=== PATIENT | female | born 1965 | race Two or more races ===

== ENCOUNTER 2021-11-05 09:21 | Outpatient (CLI) | payer OTHER | END 2021-11-05 10:57 | disposition home or self-care (01) | LOC: SONOGRAMA 09:21 | PROVIDERS: ATTEND Pathology Anatomic Pathology & Clinical Pathology | DX: E04.2 Nontoxic multinodular goiter (principal) ==

== ENCOUNTER 2022-04-30 08:45 | Inpatient (IN) | payer OTHER ==
[~2022-04-30] VITALS: Ht 167.6 cm; Wt 57.6 kg
[2022-04-30] MEDS ORDERED: NORVASC2.5 M1 PO (10:13)
[2022-04-30] MEDS ORDERED: IRBESARTAN-HCT1 EAC1 PO (10:15)
[2022-05-05] MEDS ORDERED: CIPRO500 MG PO (10:36)
[2022-05-05] MEDS ORDERED: METRONIDAZOLE500 MG PO (10:36)
[2022-05-05] MEDS ORDERED: INTESTINEX680 M1 PO (10:38)
== END 2022-05-05 14:05 | disposition home or self-care (01) | DRG 376 ==
LOC: O/R 05-03 05:54 → SURH 05-03 07:30 → SURG 05-03 10:19
PROVIDERS: ADMIT Surgery; ATTEND Surgery
PROC: 0DBP8ZZ Excision of Rectum, Via Natural or Artificial Opening Endoscopic (ICD-10-PCS; principal; 2022-05-03 07:30)
DX: C49.A5 Gastrointestinal stromal tumor of rectum (principal); K62.1 Rectal polyp; R50.82 Postprocedural fever; Z20.822 Contact with and (suspected) exposure to COVID-19